=== PATIENT | female | born 1990 | race Caucasian/White ===

== ENCOUNTER → 2018-09-12 | Outpatient (REF) | payer OTHER ==
[2018-09-12 17:27] LABS: APPEARANCE, URINE CLOUDY (CLEAR); BACTERIA, URINE AUTO 2+ (NEGATIVE); BILIRUBIN, URINE AUTO NEGATIVE (NEGATIVE); BLOOD, URINE BLOOD 2+ (NEGATIVE); COLOR, URINE YELLOW (YELLOW); GLUCOSE, URINE (UA) AUTO NEGATIVE (NEGATIVE); KETONE, URINE AUTO NEGATIVE (NEGATIVE); LEUKOCYTE ESTERASE, URINE AUTO 3+ (NEGATIVE); MUCUS, URINE SMALL (NEGATIVE); NITRITE, URINE AUTO NEGATIVE (NEGATIVE); PROTEIN, URINE AUTO NEGATIVE (NEGATIVE); RBC, URINE AUTO 19 /HPF (0-3); SPECIFIC GRAVITY URINE AUTO 1.008 (1.002-1.035); SQUAMOUS EPITHELIAL CELL UR AU 1 /HPF (0-6); UROBILINOGEN, URINE AUTO 0.2 mg/dL (0.0-2.0); WBC, URINE AUTO TNTC /HPF (0-3)
== END ==
LOC: M LAB REF 16:47
DX: N39.0 Urinary tract infection, site not specified (principal)

== ENCOUNTER 2019-03-26 12:21 | Emergency (ER) | payer OTHER ==
[~2019-03-26] VITALS: Ht 160 cm; Wt 93.2 kg
[~2019-03-26 12:21] MED LIST: NAPR-837 PO
[2019-03-26] MEDS ORDERED: MULTTAB20 PO (12:33)
[2019-03-26] MEDS ORDERED: METOCLOPRAMIDE INJ 10MG/2ML VIAL (J2765) IV ONE (13:45)
[2019-03-26] MEDS ORDERED: NS 1,000 ML IV ONE (13:45)
[2019-03-26 14:23] LABS: BASO % 0.3 % (0.0-1.0); EOS # 0.1 10^3/uL (0.0-0.50); EOS % 0.5 % (0.0-3.0); HEMATOCRIT 38.2 % (36.0-47.0); HEMOGLOBIN 13.2 g/dl (12.0-15.5); LYMPH # 1.8 10^3/uL (1.5-6.5); LYMPH % 15.9 % (24.0-44.0); MEAN CORPUSCULAR HEMOGLOBIN 29.5 pg (27.0-33.0); MEAN CORPUSCULAR HGB CONC 34.6 g/dl (32.0-36.5); MEAN CORPUSCULAR VOLUME 85.5 fl (80.0-96.0); MONO # 0.4 10^3/uL (0.0-0.8); MONO % 3.9 % (0.0-5.0); PLATELET COUNT, AUTOMATED 204 10^3/uL (150-450); RED BLOOD COUNT 4.47 10^6/uL (4.00-5.40); WHITE BLOOD COUNT 11.4 10^3/uL (4.0-10.0)
[2019-03-26] MEDS ORDERED: KEFL500C17 PO (14:42)
[2019-03-26] MEDS ORDERED: ZOFR4TAB16 PO (14:43)
[2019-03-26] MEDS ORDERED: PROC25SU24 PR (14:43)
[2019-03-26 14:49] LABS: BLOOD UREA NITROGEN 4 MG/DL (7-18); CARBON DIOXIDE LEVEL 25 MEQ/L (21-32); CHLORIDE LEVEL 105 MEQ/L (98-107); CREATININE FOR GFR 0.61 MG/DL (0.55-1.30); GLOMERULAR FILTRATION RATE > 60.0 (>60); GLUCOSE, FASTING 79 MG/DL (70-100); POTASSIUM SERUM 3.8 MEQ/L (3.5-5.1); SODIUM LEVEL 138 MEQ/L (136-145)
[2019-03-26 15:30] VITALS: BP 114/67
== END 2019-03-26 16:15 | disposition home or self-care (01) ==
LOC: M ED 12:21
DX: O23.91 Unspecified genitourinary tract infection in pregnancy, first trimester (principal); R82.71 Bacteriuria; O21.9 Vomiting of pregnancy, unspecified; O99.341 Other mental disorders complicating pregnancy, first trimester; F42.9 Obsessive-compulsive disorder, unspecified; Z3A.10 10 weeks gestation of pregnancy; Z91.040 Latex allergy status
CPT/HCPCS: 80048; 81001; 85025; 87086; 96361; 96374; 99284; J2765

== ENCOUNTER 2019-08-28 15:25 | Outpatient (CLI) | payer OTHER ==
[~2019-08-28] VITALS: Ht 160 cm; Wt 92.4 kg
[~2019-08-28 15:25] MED LIST changes: +KEFL500C17 PO; +MULTTAB20 PO; +PROC25SU24 PR; +ZOFR4TAB16 PO
[2019-08-28 15:57] VITALS: BP 114/65
--- NOTE | 2019-08-28 16:37 | IPNPDOC ---
Text Note Date of Service The patient was seen on 08/28/19. NOTE 29 yo RED 10/20/19. Presents @ 32w3d with complaints of lower back pain and cramping. Denies bleeding or LOF. Fetus is active. Hx significant for previous for indications 2004 @ 41 wks and repeat for labor 2008 @ 36 weeks. Reports lower pelvic discomfort. Denies CVAT Cat I tracing, no UC on monitor. Abdomen soft. SVE, no presenting part in pelvic, cervix FT/long/moderate texture. Urine appears concentrated and cloudy UA/C&S. Enc to increase fluids. VS,Fishbone, I+O VS, Fishbone, I+O Vital Signs Date Time Temp Pulse Resp B/P (MAP) Pulse Ox O2 Delivery O2 Flow Rate FiO2 08/28/19 15:57 98.0 88 16 114/65 (81) Tram Carrillo CNM Aug 28, 2019 16:37
[2019-08-28 16:55] LABS: APPEARANCE, URINE CLOUDY (CLEAR); BACTERIA, URINE AUTO 2+ (NEGATIVE); BILIRUBIN, URINE AUTO NEGATIVE (NEGATIVE); BLOOD, URINE BLOOD NEGATIVE (NEGATIVE); CALCIUM OXALATE CRYSTALS SMALL; COLOR, URINE YELLOW (YELLOW); GLUCOSE, URINE (UA) AUTO NEGATIVE (NEGATIVE); KETONE, URINE AUTO NEGATIVE (NEGATIVE); LEUKOCYTE ESTERASE, URINE AUTO NEGATIVE (NEGATIVE); MUCUS, URINE SMALL (NEGATIVE); NITRITE, URINE AUTO NEGATIVE (NEGATIVE); PROTEIN, URINE AUTO NEGATIVE (NEGATIVE); RBC, URINE AUTO 2 /HPF (0-3); SPECIFIC GRAVITY URINE AUTO 1.012 (1.002-1.035); SQUAMOUS EPITHELIAL CELL UR AU 18 /HPF (0-6); WBC, URINE AUTO 5 /HPF (0-3)
--- NOTE | 2019-08-28 17:06 | IPNPDOC ---
Text Note Date of Service The patient was seen on 08/28/19. NOTE UA is negative. Pt reports her pain is mostly lower pelvic in nature Works as a direct gericare aide Rec support shoes, maternity support belt, good body mechanics. Discharged home. Routine precautions. Keep appt on Saturday. VS,Fishbone, I+O VS, Fishbone, I+O Vital Signs Date Time Temp Pulse Resp B/P (MAP) Pulse Ox O2 Delivery O2 Flow Rate FiO2 08/28/19 15:57 98.0 88 16 114/65 (81) Tram Carrillo CNM Aug 28, 2019 17:06
== END 2019-08-28 17:29 | disposition home or self-care (01) ==
LOC: M LDO 15:25
PROVIDERS: ATTEND Advanced Practice Midwife
DX: O26.893 Other specified pregnancy related conditions, third trimester (principal); M54.5 Low back pain; Z3A.32 32 weeks gestation of pregnancy

== ENCOUNTER 2020-04-13 16:56 | Emergency (ER) | payer OTHER, SELFPAY ==
[~2020-04-13] VITALS: Ht 157.5 cm; Wt 93.8 kg
[2020-04-13] MEDS ORDERED: LARI1TAB9 PO (17:10)
[2020-04-13] MEDS ORDERED: NORCO, ANEXSIA 5/325MG TABLET (HYDROcodone/ACETAMINOPHEN) PO ONE (18:30)
--- NOTE | 2020-04-13 19:11 | REP ---
Four views right ankle: 04/13/2020. Indication: Right ankle pain following injury. Comparison: 05/11/2011. Findings: There is no acute fracture, subluxation or dislocation. Mild soft tissue edema is noted. Joint space height is maintained. No lytic or blastic lesions are present. Impression: No acute osseous right ankle injury. Electronically Signed by Suraj Breen DO 04/13/2020 07:03 P
--- NOTE | 2020-04-13 19:14 | REP ---
Four views left elbow: 04/13/2020. Indication: Left elbow pain following injury. Comparison: None. Findings: There is no acute fracture, subluxation or dislocation. No significant joint effusion is present. There are no lytic or blastic lesions. Impression: No acute osseous left elbow injury. Electronically Signed by Suraj Breen DO 04/13/2020 07:06 P
--- NOTE | 2020-04-13 19:16 | REP ---
Three views left shoulder: 04/13/2020. Indication: Left shoulder pain following injury. Comparison: None. Findings: There is no acute fracture, subluxation or dislocation. The visualized lung is clear. No lytic or blastic lesions are present. Impression: No acute osseous injury of the left shoulder. Electronically Signed by Suraj Breen DO 04/13/2020 07:07 P
[2020-04-13] MEDS ORDERED: NAPR-837 PO (19:28)
[2020-04-13 19:35] VITALS: BP 156/92
== END 2020-04-13 19:50 | disposition home or self-care (01) ==
LOC: M ED 16:56
DX: S93.401A Sprain of unspecified ligament of right ankle, initial encounter (principal); S50.02XA Contusion of left elbow, initial encounter; M25.512 Pain in left shoulder; W01.0XXA Fall on same level from slipping, tripping and stumbling without subsequent striking against object, initial encounter; Y92.410 Unspecified street and highway as the place of occurrence of the external cause; Y93.02 Activity, running; F17.210 Nicotine dependence, cigarettes, uncomplicated; Z91.040 Latex allergy status; Z79.3 Long term (current) use of hormonal contraceptives